=== PATIENT | male | born 1965 | race Caucasian/White ===

== ENCOUNTER 2017-05-16 18:52 | Emergency (ER) | payer OTHER ==
[2017-05-16 21:31] LABS: A TYPE INFLUENZA AG NEGATIVE (NEGATIVE); B INFLUENZA AG NEGATIVE (NEGATIVE)
--- NOTE | 2017-05-16 22:01 | ER Document Report ---
ED General - General Chief Complaint: Flu Symptoms Stated Complaint: FEVER Time Seen by Provider: 05/16/17 20:30 Notes: Patient is a 52-year-old male without past medical history who presents with concerns of possibly having the flu. 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 Patient states when he got home he felt generally achy, tired and his felt that he had a fever at home. He came to the emergency department for formal testing of the flu as his family was worried about possibly also getting the flu from him. He denies any cough, sputum production, vomiting, diarrhea, headache or neck pain. No history of similar symptoms in the past. He has not tried any to improve his symptoms and has not noted that anything worsens his symptoms. He has not seen his primary care doctor regarding today's concerns. - Related Data Allergies/Adverse Reactions: No Known Allergies Allergy (Unverified 05/16/17 18:54) Past Medical History - General Information source: Patient - Social History Smoking Status: Never Smoker Frequency of alcohol use: None Drug Abuse: None Lives with: Spouse/Significant other Family History: Reviewed & Not Pertinent Patient has suicidal ideation: No Patient has homicidal ideation: No Renal/ Medical History: Denies: Hx Peritoneal Dialysis Review of Systems - Review of Systems Notes: Constitutional: Positive for achiness and subjective fever HENT: Negative for sore throat. Eyes: Negative for visual changes. Cardiovascular: Negative for chest pain. Respiratory: Negative for shortness of breath. Gastrointestinal: Negative for abdominal pain, vomiting or diarrhea. Genitourinary: Negative for dysuria. Musculoskeletal: Negative for back pain. Skin: Negative for rash. Neurological: Negative for headaches, weakness or numbness. 10 point ROS negative except as marked above and in HPI. Physical Exam - Vital signs Vitals: Temp Pulse Resp BP Pulse Ox 98.3 F 94 16 135/102 H 97 05/16/17 18:58 05/16/17 18:58 05/16/17 18:58 05/16/17 18:58 05/16/17 18:58 Interpretation: Normal Notes: PHYSICAL EXAMINATION: GENERAL: Well-appearing, well-nourished and in no acute distress. HEAD: Atraumatic, normocephalic. EYES: Pupils equal round and reactive to light, extraocular movements intact, sclera anicteric, conjunctiva are normal. ENT: nares patent, oropharynx clear without exudates. Moist mucous membranes. NECK: Normal range of motion, supple without lymphadenopathy LUNGS: Breath sounds clear to auscultation bilaterally and equal. No wheezes rales or rhonchi. HEART: Regular rate and rhythm without murmurs ABDOMEN: Soft, nontender, normoactive bowel sounds. No guarding, no rebound. No masses appreciated. EXTREMITIES: Normal range of motion, no pitting or edema. No cyanosis. NEUROLOGICAL: No focal neurological deficits. Moves all extremities spontaneously and on command. PSYCH: Normal mood, normal affect. SKIN: Warm, Dry, normal turgor, no rashes or lesions noted. Course - Re-evaluation Re-evalutation: 05/16/17 22:07 Patient presents with body aches, subjective fever and sore throat at home but no additional symptoms. He is otherwise very well in appearance, vitals within normal limits, unremarkable exam. He is requesting flu testing as his family is worried about being exposed. Flu test is negative. I do not suspect an acute pneumonia given absence of any cough or shortness of breath. No indication for chest x-ray. No indication for additional formal labs patient again is otherwise very well in appearance. No focal abdominal tenderness to suggest intra-abdominal pathology as etiology of his symptoms. At this time will discharge with return precautions and follow-up recommendations. Verbal discharge instructions given a the bedside and opportunity for questions given. Medication warnings reviewed. Patient is in agreement with this plan and has verbalized understanding of return precautions and the need for primary care follow-up in the next 24-72 hours. - Vital Signs Vital signs: Temp Pulse Resp BP Pulse Ox 98.5 F 84 18 133/90 H 95 05/16/17 22:40 05/16/17 22:40 05/16/17 22:40 05/16/17 22:40 05/16/17 22:40 Discharge - Discharge Clinical Impression: Body aches Fever Qualifiers: Fever type: unspecified Qualified Code(s): R50.9 - Fever, unspecified Condition: Good Disposition: HOME, SELF-CARE Additional Instructions: Your flu test is negative here. Take Tylenol or ibuprofen as needed for body aches and fever. Return for any additional concerns you may have including persistent vomiting, passing out, chest pain, shortness of breath, or any other symptoms that are worrisome to you. Referrals: AISSATOU LUCERO MD [Primary Care Provider] - Follow up as needed
[2017-05-17 01:46] VITALS: BP 133/90
== END 2017-05-16 22:40 | disposition home or self-care (01) ==
LOC: ER 18:52
DX: R50.9 Fever, unspecified (principal); M79.1 Myalgia
CPT/HCPCS: 87804; 99283